=== PATIENT | female | born 1975 | race Caucasian/White ===

== ENCOUNTER → 2016-11-23 | Outpatient (CLI) | payer BC ==
[~2016-11-23] MED LIST: ACET50TA PO; DOCU10CA PO; MOTR200T44 PO; PRENTAB7 PO
[2016-11-23 13:29] LABS: BASO % 0.4 % (0.0-1.0); EOS # 0.2 K/mm3 (0.0-0.50); EOS % 3.9 % (0.0-3.0); LARGE UNSTAINED CELL # 0.1 K/mm3 (0.0-0.4); LARGE UNSTAINED CELL % 2.7 % (0.0-4.0); LYMPH # 1.4 K/mm3 (1.5-4.5); LYMPH % 31.3 % (24.0-44.0); MEAN CORPUSCULAR HEMOGLOBIN 31.9 pg (27.0-33.0); MEAN CORPUSCULAR HGB CONC 33.5 g/dl (32.0-36.5); MEAN CORPUSCULAR VOLUME 95.3 fl (80.0-96.0); MONO # 0.2 K/mm3 (0.0-0.8); MONO % 5.2 % (0.0-5.0); NEUTROPHILS # 2.2 K/mm3 (1.8-7.7); NEUTROPHILS % 56.5 % (36.0-66.0); PLATELET COUNT, AUTOMATED 246 k/mm3 (150-450); RED CELL DISTRIBUTION WIDTH 12.2 % (11.5-14.5)
[2016-11-23 13:59] LABS: ALBUMIN 4.4 GM/DL (3.2-5.2); ALBUMIN/GLOBULIN RATIO 1.63 (1.00-1.93); ALKALINE PHOSPHATASE 48 U/L (45-117); ALT/SGPT 20 U/L (12-78); ANION GAP 11 MEQ/L (8-16); AST/SGOT 18 U/L (15-37); BILIRUBIN,TOTAL 0.6 MG/DL (0.2-1.0); BLOOD UREA NITROGEN 15 MG/DL (7-18); CALCIUM LEVEL 8.9 MG/DL (8.5-10.1); CARBON DIOXIDE LEVEL 28 MEQ/L (21-32); CHLORIDE LEVEL 104 MEQ/L (98-107); CHOLESTEROL LEVEL 134 MG/DL (<200); CREATININE FOR GFR 0.58 MG/DL (0.55-1.02); FREE T4 0.95 NG/DL (0.76-1.46); GLOMERULAR FILTRATION RATE > 60.0 (>58); GLUCOSE, FASTING 87 MG/DL (70-105); POTASSIUM SERUM 4.3 MEQ/L (3.5-5.1); SODIUM LEVEL 143 MEQ/L (136-145); TOTAL PROTEIN 7.1 GM/DL (6.4-8.2); TRIGLYCERIDES LEVEL 36 MG/DL (<150)
== END ==
LOC: M SMT 08:20
PROVIDERS: ATTEND Family Medicine
DX: Z13.29 Encounter for screening for other suspected endocrine disorder (principal); Z13.220 Encounter for screening for lipoid disorders; Z13.0 Encounter for screening for diseases of the blood and blood-forming organs and certain disorders involving the immune mechanism

== ENCOUNTER → 2017-02-02 | Outpatient (REF) | payer BC | LOC: M LAB REF 09:04 | PROVIDERS: ATTEND Family Medicine | DX: Z12.4 Encounter for screening for malignant neoplasm of cervix (principal) ==

== ENCOUNTER → 2017-07-22 | Outpatient (REF) | payer BC | LOC: M LAB REF 09:12 | PROVIDERS: ATTEND Family Medicine | DX: Z20.09 Contact with and (suspected) exposure to other intestinal infectious diseases (principal) ==

== ENCOUNTER → 2018-02-14 | Outpatient (CLI) | payer BC ==
[2018-02-14 13:57] LABS: FREE T4 0.87 NG/DL (0.76-1.46)
== END ==
LOC: M SMT 09:56
DX: R00.2 Palpitations (principal)
CPT/HCPCS: 84443

== ENCOUNTER → 2018-02-14 | Outpatient (REF) | payer BC ==
[2018-02-18 14:16] LABS: HPV LOW VOL RFLX Negative (Negative)
== END ==
LOC: M LAB REF 09:41
DX: Z12.4 Encounter for screening for malignant neoplasm of cervix (principal)
CPT/HCPCS: G0123

== ENCOUNTER → 2018-10-17 | Outpatient (REF) | payer BC ==
[~2018-10-17] MED LIST changes: -ACET50TA PO; +MAPA500T2 PO
[2018-10-19 14:36] LABS: ANTINUCLEAR ANTIBODIES DIRECT Negative (Negative)
== END ==
LOC: M LAB REF 12:02
PROVIDERS: ATTEND Internal Medicine
DX: I73.00 Raynaud's syndrome without gangrene (principal)

== ENCOUNTER → 2020-07-14 | Outpatient (CLI) | payer BC ==
[~2020-07-14] MED LIST changes: +PROP10TA56
== END ==
LOC: M LABSMTC 09:16
PROVIDERS: ATTEND Anesthesiology
DX: Z01.812 Encounter for preprocedural laboratory examination (principal); Z20.828 Contact with and (suspected) exposure to other viral communicable diseases
CPT/HCPCS: C9803; U0002

== ENCOUNTER 2020-07-16 11:31 | Day surgery (SDC) | payer BC ==
[~2020-07-16] VITALS: Ht 160 cm; Wt 55.2 kg
[~2020-07-16 11:31] MED LIST changes: +LIDOCAINE 2% 100MG/5ML SDV (FOR ANES.) As Ordered ONE; +LR 1,000 ML IV ONE; +MIDAZOLAM INJ 2MG/2ML VIAL (J2250 PER 1MG) As Ordered ONE; +ONDANSETRON 4MG/2ML VIAL As Ordered ONE; +SUGAMMADEX SODIUM 500 MG/5 ML VIAL (BRIDION) As Ordered ONE; +ceFAZolin SOD 1 GM in D5W MINI-BAG PLUS 50 ML IV ONE; +dexameTHASONE 4 MG/ML 1ML VIAL (J1100 PER 1MG) As Ordered ONE; +fentaNYL 100 MCG/2 ML INJECTION (J3010) As Ordered ONE; +propofoL 500 MG/50 ML VIAL As Ordered ONE
[2020-07-16] MEDS ORDERED: BUPIVACAINE HCL 0.25% 10ML VIAL As Ordered ONE (12:02)
[2020-07-16] MEDS ORDERED: LIDOCAINE W/EPINEPHRINE 1% 20ML VIAL As Ordered ONE (12:03)
[2020-07-16] MEDS ORDERED: propofoL 200 MG/20 ML VIAL As Ordered ONE ×2 (13:15→13:51)
[2020-07-16] MEDS ORDERED: ACETAMINOPHEN 1000MG 100ML IV BTL (OFIRMEV) (J0131 PER 10MG) As Ordered ONE (13:38)
[2020-07-16 15:30] VITALS: BP 110/82
--- NOTE | 2020-07-29 14:06 | RO ---
DATE OF OPERATION: 07/16/2020 PREOPERATIVE DIAGNOSIS: 1. Left flank lipoma 2. Rectal bleeding POSTOPERATIVE DIAGNOSIS: 1. Rectal polyps times 2. 2. Lipoma 12 x 8 cm PROCEDURE: 1. Colonoscopy with snare polypectomy 2. Excision of lipoma, left flank. SURGEON: Armond Gunn MD ANESTHESIA: IV sedation plus local. BRIEF PROCEDURE SUMMARY: The patient was brought to the operating room, was given IV sedation, was prepped and draped in the usual sterile fashion for the colonoscopy first and the colonoscopy was performed in the patient's stretcher in the left lateral decubitus position. The colonoscope was inserted and advanced through the rectum up through the sigmoid colon, up to the ileocecal valve and the cecum where no significant problems were appreciated in the cecum, ileocecal valve, right colon, transverse colon, descending colon and sigmoid colon. There was a little bit of spasm and redundancy throughout the ascending colon, transverse colon and descending colon, but no other masses or lesions were appreciated. There was a very small polyp in the proximal rectum; but in the mid rectum, there was a moderate sized polyp that was quite inflamed and irritated and might have actually had some recent bleeding associated with this, which was removed with snare polypectomy. The operative field was cleaned and dry and all of the colonoscope was removed in its entirety. No other etiology for rectal bleeding was appreciated. However, the polyp itself easily could have been a source of this. The patient was taken off her stretcher and put on the operating room bed and then placed in the right lateral decubitus position and was prepped and draped in the usual sterile fashion, given IV sedation and local was infiltrated surrounding the entire area. Incision overlying the longitudinal aspect of the lipoma was made with skin knife. Electrocautery was used to cut through dermis, underlying subcutaneous tissue down to the lipoma itself. Lipoma was removed using a combination of blunt and sharp dissection and eventually this lipoma, which had reached all the way down to rib cage and off the fascia, but not involving the muscle itself and was not intramuscular; lipoma was removed in its entirety. 3-0 Vicryl was used to approximate the subcutaneous tissue, as well as the dermis after good hemostasis was achieved with electrocautery and the skin was approximated with a running 4-0 Vicryl suture. Steri-Strips and a dry sterile dressing were applied and the patient was awakened from her anesthesia, brought to the recovery room awake, alert and hemodynamically stable. Sponge and needle counts correct times 2. MTDD
== END 2020-07-16 15:40 | disposition home or self-care (01) ==
LOC: M SDC 11:31
PROVIDERS: ATTEND Surgery
DX: K62.5 Hemorrhage of anus and rectum (principal); D12.8 Benign neoplasm of rectum; D12.6 Benign neoplasm of colon, unspecified; D17.9 Benign lipomatous neoplasm, unspecified; K58.8 Other irritable bowel syndrome; F41.9 Anxiety disorder, unspecified
CPT/HCPCS: 11406; 45385; 81025; 88304; 88305; J0131; J0690; J1100; J2250; J2405; J3010

== ENCOUNTER → 2020-08-21 | Outpatient (CLI) | payer SELFPAY ==
[~2020-08-21] MED LIST changes: -LIDOCAINE 2% 100MG/5ML SDV (FOR ANES.) As Ordered ONE; -LR 1,000 ML IV ONE; -MIDAZOLAM INJ 2MG/2ML VIAL (J2250 PER 1MG) As Ordered ONE; -ONDANSETRON 4MG/2ML VIAL As Ordered ONE; -SUGAMMADEX SODIUM 500 MG/5 ML VIAL (BRIDION) As Ordered ONE; -ceFAZolin SOD 1 GM in D5W MINI-BAG PLUS 50 ML IV ONE; -dexameTHASONE 4 MG/ML 1ML VIAL (J1100 PER 1MG) As Ordered ONE; -fentaNYL 100 MCG/2 ML INJECTION (J3010) As Ordered ONE; -propofoL 500 MG/50 ML VIAL As Ordered ONE
== END ==
LOC: M LABSMTC 13:44
PROVIDERS: ATTEND Pediatrics
DX: Z11.59 Encounter for screening for other viral diseases (principal)

== ENCOUNTER → 2021-01-20 | Outpatient (CLI) | payer BC ==
--- NOTE | 2021-01-20 14:39 | REP ---
INDICATION: IRREGULAR MENSES, FAMILY HX OVARIAN CA COMPARISON: None. TECHNIQUE: Transabdominal pelvic ultrasound followed by transvaginal examination for better evaluation of the endometrium and adnexa with color Doppler evaluation of the ovaries. FINDINGS: Bladder is unremarkable and measures 11.0 x 11.9 x 7.1 cm. Normal anteverted uterus measures 8.5 x 4.4 x 4.2 cm. The endometrial complex measures 4.5 mm thickness. Small subcentimeter nabothian cyst and punctate calcifications along the endometrium are likely chronic and insignificant. Bilateral ovaries are normal in appearance . Right ovary measures 2.4 x 1.0 x 2.0 cm; left ovary measures 3.1 x 1.5 x 1.5 cm. No pelvic fluid or adnexal mass lesion. IMPRESSION: Essentially normal pelvic ultrasound. <Electronically signed by Balaji Decker > 01/20/21 [id number]
== END ==
LOC: M RAD 10:39
PROVIDERS: ATTEND Internal Medicine
DX: N92.6 Irregular menstruation, unspecified (principal); Z80.41 Family history of malignant neoplasm of ovary; N88.8 Other specified noninflammatory disorders of cervix uteri

== ENCOUNTER → 2021-08-18 | Outpatient (CLI) | payer BC ==
--- NOTE | 2021-08-19 09:00 | REP ---
INDICATION: SCREENING MAMMO, DENSE BREAST. COMPARISON: Multiple prior screening examinations, the most recent, 08/12/2020. TECHNIQUE: Digital screening (2D) mammography was performed bilaterally in the CC and MLO projections. Additionally, breast tomosynthesis (3D mammography) was performed bilaterally in the CC and MLO projections. Bilateral whole breast ultrasound was performed. FINDINGS: By history, the patient has no complaints of a palpable breast abnormality or other significant breast complaints. The [facility] volumetric breast density pattern is C, the breasts are heterogenously dense which may obscure small masses. Mammographically, there are no suspicious calcifications, dominant masses or areas of architectural distortion in either breast. There is no significant change since the prior exam. Right breast ultrasound: There are no cystic or solid masses in the right breast. Left breast ultrasound: 12 o'clock, 4 cm from the nipple, complicated cyst. IMPRESSION: BIRADS/ACR : Category 3: Probably benign. This patient's Tyrer-Cuzick lifetime breast cancer risk assessment score is 12.4%. This mammogram was interpreted with the aid of an FDA-approved computer-aided detection system. The patient states she had a clinical breast exam in November 2020. The patient letter being requested is M3. RECOMMENDATION: Six-month follow-up ultrasound evaluation of the left breast. <Electronically signed by Sidney Braden > 08/19/21 [id number]
--- NOTE | 2021-08-19 14:10 | REP ---
INDICATION: Screening, dense breasts. COMPARISON: Multiple screening examinations, the most recent, 08/12/2020. TECHNIQUE: Digital screening (2D) mammography was performed bilaterally in the CC and MLO projections. Additionally, breast tomosynthesis (3D mammography) was performed bilaterally in the CC and MLO projections. Bilateral whole breast ultrasound was performed. FINDINGS: By history, the patient has no complaints of a palpable breast abnormality or other significant breast complaints. [facility], the breasts are heterogenously dense which may obscure small masses. Mammographically, there are no suspicious calcifications, dominant masses or areas of architectural distortion in either breast. There is no significant change since the prior exam. Right breast ultrasound: There are no cystic or solid masses in the right breast. Left breast ultrasound: 12 o'clock, 4 cm from the nipple, complicated cyst. IMPRESSION: BIRADS/ACR : Category 3: Probably benign. This patient's Tyrer-Cuzick lifetime breast cancer risk assessment score is 12.4%. This mammogram was interpreted with the aid of an FDA-approved computer-aided detection system. The patient states she had a clinical breast exam in November 2020. The patient letter being requested is M3. RECOMMENDATION: Six-month follow-up ultrasound evaluation of the left breast. <Electronically signed by Sidney Braden > 08/19/21 [id number]
== END ==
LOC: M WHC 11:15
PROVIDERS: ATTEND Internal Medicine
DX: Z12.31 Encounter for screening mammogram for malignant neoplasm of breast (principal); N60.02 Solitary cyst of left breast; R92.8 Other abnormal and inconclusive findings on diagnostic imaging of breast

== ENCOUNTER → 2021-10-14 | Outpatient (REF) | payer BC, OTHER | LOC: M SFHCWAGY 13:14 | PROVIDERS: ATTEND Advanced Practice Midwife | DX: Z12.4 Encounter for screening for malignant neoplasm of cervix (principal) | CPT/HCPCS: 87624; G0123 ==

== ENCOUNTER → 2021-11-25 | Outpatient (REF) | payer OTHER, BC ==
[2021-11-25 17:24] LABS: FOLLICLE STIMULATING HORMONE 133.4 mIU/mL; LUTEINIZING HORMONE 78.4 mIU/mL; VITAMIN B12 LEVEL 537 PG/ML (247-911)
[2021-11-26 16:16] LABS: TOTAL PROTEIN 7.2 GM/DL (6.4-8.2)
[2021-11-28 12:51] LABS: ALBUMIN 4.59 GM/DL (3.29-5.55); ALBUMIN % 63.7 % (55.8-66.1); ALPHA-1-GLOBULIN % 3.8 % (2.9-4.9); ALPHA-1-GLOBULINS 0.27 GM/DL (0.17-0.41); ALPHA-2-GLOBULINS % 8.3 % (7.1-11.8); BETA-1-GLOBULINS 0.44 GM/DL (0.28-0.60); BETA-1-GLOBULINS % 6.1 % (4.7-7.2)
[2021-11-28 12:52] LABS: BETA-2-GLOBULINS 0.34 GM/DL (0.19-0.55); BETA-2-GLOBULINS % 4.7 % (3.2-6.5); GAMMA GLOBULIN % 13.4 % (11.1-18.8); GAMMA GLOBULINS 0.96 GM/DL (0.65-1.58)
[2021-11-29 00:05] LABS: ANTINUCLEAR ANTIBODIES DIRECT Negative (Negative); CYCLIC CITRULLINATED PEPTIDE 7 units (0-19)
== END ==
LOC: M LAB REF 16:19
PROVIDERS: ATTEND Internal Medicine
DX: H53.8 Other visual disturbances (principal); N95.9 Unspecified menopausal and perimenopausal disorder

== ENCOUNTER → 2021-12-16 | Outpatient (REF) | payer OTHER, BC | LOC: M LAB REF 16:43 | PROVIDERS: ATTEND Internal Medicine | DX: D70.9 Neutropenia, unspecified (principal) ==

== ENCOUNTER → 2022-01-29 | Outpatient (CLI) | payer OTHER, MEDICARE | LOC: M PLALAB 10:08 | PROVIDERS: ATTEND Surgery | DX: Z13.79 Encounter for other screening for genetic and chromosomal anomalies (principal) ==

== ENCOUNTER → 2022-08-18 | Outpatient (REF) | payer OTHER ==
[2022-08-18 13:48] LABS: C REACTIVE PROTEIN QUANTITATIV 0.4 MG/DL (<1.0)
== END ==
LOC: M LAB REF 12:28
PROVIDERS: ATTEND Internal Medicine
DX: H53.8 Other visual disturbances (principal)

== ENCOUNTER → 2022-09-29 | Outpatient (REF) | payer OTHER | LOC: M LAB REF 16:32 | PROVIDERS: ATTEND Internal Medicine | DX: Z11.59 Encounter for screening for other viral diseases (principal) ==

== ENCOUNTER 2023-02-11 08:35 | Day surgery (SDC) | payer OTHER ==
[~2023-02-11] VITALS: Ht 160 cm; Wt 58.6 kg
[~2023-02-11 08:35] MED LIST changes: +NS 1,000 ML IV ONE; +PROP20TA72 PO
[2023-02-11] MEDS ORDERED: LIDOCAINE 2% 100MG/5ML SDV (FOR ANES.) As Ordered ONE (09:12)
[2023-02-11] MEDS ORDERED: propofoL 200 MG/20 ML VIAL As Ordered ONE (09:12)
[2023-02-11 10:44] VITALS: BP 99/62
== END 2023-02-11 11:15 | disposition home or self-care (01) ==
LOC: M OPP 08:35
PROVIDERS: ATTEND Surgery
DX: Z12.11 Encounter for screening for malignant neoplasm of colon (principal); Z86.010 Personal history of colon polyps; D12.8 Benign neoplasm of rectum; Z79.1 Long term (current) use of non-steroidal anti-inflammatories (NSAID); Z79.51 Long term (current) use of inhaled steroids; Z79.899 Other long term (current) drug therapy

== ENCOUNTER → 2023-05-24 | Outpatient (REF) | payer MEDICARE ==
[~2023-05-24] MED LIST changes: -NS 1,000 ML IV ONE
== END ==
LOC: M PLALAB 10:15
PROVIDERS: ATTEND Advanced Practice Midwife
DX: Z12.4 Encounter for screening for malignant neoplasm of cervix (principal)
CPT/HCPCS: 87624; G0123

== ENCOUNTER 2024-09-21 19:33 | Observation (INO) | payer MEDICARE, OTHER ==
[~2024-09-21] VITALS: Ht 160 cm; Wt 59.2 kg
[2024-09-21] MEDS ORDERED: PHEN10TA3 PO (19:42)
[2024-09-21] MEDS ORDERED: FLON1SPR NARES (19:42)
[2024-09-21 20:59] LABS: BASO % 0.4 % (0.0-1.0); EOS # 0.1 10^3/uL (0.0-0.5); EOS % 1.1 % (0.0-3.0); HEMATOCRIT 41.8 % (36.0-47.0); HEMOGLOBIN 13.7 g/dl (12.0-15.5); LYMPH # 1.5 10^3/uL (1.5-5.0); LYMPH % 18.5 % (24.0-44.0); MEAN CORPUSCULAR HEMOGLOBIN 29.9 pg (27.0-33.0); MEAN CORPUSCULAR HGB CONC 32.8 g/dl (32.0-36.5); MEAN CORPUSCULAR VOLUME 91.3 fl (80.0-96.0); MONO # 0.4 10^3/uL (0.0-0.8); NEUTROPHILS # 5.9 10^3/uL (1.5-8.5); NEUTROPHILS % 74.6 % (36.0-66.0); RED BLOOD COUNT 4.58 10^6/uL (4.00-5.40); WHITE BLOOD COUNT 7.9 10^3/uL (4.0-10.0)
[2024-09-21 21:11] LABS: BLOOD UREA NITROGEN 13 MG/DL (9-23); CALCIUM LEVEL 9.5 MG/DL (8.5-10.1); CARBON DIOXIDE LEVEL 29 MMOL/L (20-31); CHLORIDE LEVEL 107 MMOL/L (98-107); CREATININE FOR GFR 0.62 MG/DL (0.55-1.30); GLOMERULAR FILTRATION RATE > 60.0 (>51); GLUCOSE, FASTING 114 MG/DL (60-100); POTASSIUM SERUM 4.5 MMOL/L (3.5-5.1); SODIUM LEVEL 140 MMOL/L (136-145)
[2024-09-21 21:26] LABS: PLATELET COUNT, AUTOMATED 19 10^3/uL (150-450)
[2024-09-22 01:13] LABS: SOURCE PERIPHERAL SMEAR
[2024-09-22 01:24] LABS: INR 0.96; PARTIAL THROMBOPLASTIN TIME 29.7 SECONDS (24.8-34.2); PROTHROMBIN TIME 13.1 SECONDS (12.5-14.5)
[2024-09-22 01:36] LABS: ALBUMIN 4.4 G/DL (3.2-5.2); ALKALINE PHOSPHATASE 84 U/L (35-104); ALT/SGPT 28 U/L (7.0-40); AST/SGOT 33 U/L (<34); BILIRUBIN,DIRECT < 0.1 MG/DL (<0.4); BILIRUBIN,TOTAL 0.4 MG/DL (0.3-1.2); BLOOD UREA NITROGEN 13 MG/DL (9-23); CALCIUM LEVEL 9.6 MG/DL (8.5-10.1); CARBON DIOXIDE LEVEL 29 MMOL/L (20-31); CHLORIDE LEVEL 103 MMOL/L (98-107); CREATININE FOR GFR 0.53 MG/DL (0.55-1.30); GLOMERULAR FILTRATION RATE > 60.0 (>51); GLUCOSE, FASTING 124 MG/DL (60-100); POTASSIUM SERUM 3.6 MMOL/L (3.5-5.1); SODIUM LEVEL 141 MMOL/L (136-145); TOTAL PROTEIN 7.9 G/DL (5.7-8.2)
[2024-09-22] MEDS: methylPREDNISolone 40MG 1ML VIAL IV SCH (03:31)
[2024-09-22] MEDS: cefTRIAXone SOD 1 GM in DEXTROSE 5% (D5W) ADV/MINI-BAG 50 ML IV SCH (03:32)
[2024-09-22 03:52] VITALS: BP 141/86; TEMP 97.7; O2SAT 99
[2024-09-22] MEDS ORDERED: PROP10TA56 PO (03:52)
[2024-09-22] MEDS ORDERED: HOME MED LIST COMPLETE! XX SCH (03:55)
[2024-09-22 04:10] VITALS: BP 126/72; TEMP 98; O2SAT 98
[2024-09-22 04:52] VITALS: BP 119/76; TEMP 97.7; O2SAT 97
[2024-09-22 07:12] LABS: INR 0.99; PROTHROMBIN TIME 13.3 SECONDS (12.5-14.5)
[2024-09-22 08:05] LABS: BASO % 0.4 % (0.0-1.0); EOS % 0.1 % (0.0-3.0); LYMPH # 0.7 10^3/uL (1.5-5.0); LYMPH % 9.2 % (24.0-44.0); MEAN CORPUSCULAR HEMOGLOBIN 30.1 pg (27.0-33.0); MEAN CORPUSCULAR HGB CONC 33.3 g/dl (32.0-36.5); MEAN CORPUSCULAR VOLUME 90.3 fl (80.0-96.0); MONO # 0.1 10^3/uL (0.0-0.8); MONO % 1.3 % (2.0-8.0); NEUTROPHILS # 6.8 10^3/uL (1.5-8.5); NEUTROPHILS % 88.7 % (36.0-66.0); RED BLOOD COUNT 4.32 10^6/uL (4.00-5.40); WHITE BLOOD COUNT 7.7 10^3/uL (4.0-10.0)
[2024-09-22 08:11] LABS: VITAMIN B12 LEVEL 485 PG/ML (211-911)
[2024-09-22 08:21] LABS: PLATELET COUNT, AUTOMATED 42 10^3/uL (150-450)
[2024-09-22 08:27] LABS: HEPATITIS B SURFACE ANTIGEN NEGATIVE (NEGATIVE)
[2024-09-22 08:48] LABS: HEPATITIS C VIRUS ABY INDEX < 0.02 INDEX (<0.8)
[2024-09-22 08:49] LABS: HEPATITIS B CORE ANTIBODY IGM NEGATIVE (NEGATIVE)
[2024-09-22 08:50] LABS: FOLATE > 24.00 NG/ML (>5.4)
[2024-09-22] MEDS: PROPRANOLOL 10 MG TAB PO SCH (09:00)
[2024-09-22] MEDS: DOXYCYCLINE HYCLATE 100MG TABLET PO SCH (09:25)
[2024-09-22] MEDS ORDERED: FLUTICASONE PROP 0.05% NASAL SPRAY 16 GM (FLONASE) NARES PRN (12:20)
[2024-09-22] MEDS: ACETAMINOPHEN 325 MG TAB PO PRN (13:57)
[2024-09-22 15:20] VITALS: BP 131/85; TEMP 97.9; O2SAT 99
[2024-09-22 20:24] VITALS: BP 118/84; TEMP 97.9; O2SAT 98
[2024-09-23 04:22] VITALS: BP 116/79; TEMP 97.9; O2SAT 97
[2024-09-23 06:19] LABS: BASO % 0.6 % (0.0-1.0); EOS # 0.1 10^3/uL (0.0-0.5); EOS % 1.8 % (0.0-3.0); HEMATOCRIT 40.4 % (36.0-47.0); HEMOGLOBIN 13.2 g/dl (12.0-15.5); LYMPH # 2.4 10^3/uL (1.5-5.0); LYMPH % 35.5 % (24.0-44.0); MEAN CORPUSCULAR HGB CONC 32.7 g/dl (32.0-36.5); MEAN CORPUSCULAR VOLUME 91.8 fl (80.0-96.0); MONO # 0.5 10^3/uL (0.0-0.8); MONO % 7.4 % (2.0-8.0); NEUTROPHILS # 3.7 10^3/uL (1.5-8.5); NEUTROPHILS % 54.4 % (36.0-66.0); WHITE BLOOD COUNT 6.8 10^3/uL (4.0-10.0)
[2024-09-23 06:23] LABS: PLATELET COUNT, AUTOMATED 65 10^3/uL (150-450)
[2024-09-23 06:45] LABS: ALKALINE PHOSPHATASE 79 U/L (35-104); ALT/SGPT 21 U/L (7.0-40); AST/SGOT 19 U/L (<34); BILIRUBIN,TOTAL 0.4 MG/DL (0.3-1.2); BLOOD UREA NITROGEN 19 MG/DL (9-23); CALCIUM LEVEL 9.1 MG/DL (8.5-10.1); CARBON DIOXIDE LEVEL 31 MMOL/L (20-31); CHLORIDE LEVEL 108 MMOL/L (98-107); CREATININE FOR GFR 0.66 MG/DL (0.55-1.30); GLOMERULAR FILTRATION RATE > 60.0 (>51); GLUCOSE, FASTING 97 MG/DL (60-100); MAGNESIUM LEVEL 1.9 MG/DL (1.8-2.4); POTASSIUM SERUM 4.2 MMOL/L (3.5-5.1); SODIUM LEVEL 146 MMOL/L (136-145)
[2024-09-23] MEDS: PANTOPRAZOLE 40MG TAB (PROTONIX) PO SCH (09:02)
[2024-09-23] MEDS: dexAMETHasone 4 MG TAB PO SCH (09:02)
[2024-09-23 09:03] VITALS: BP 116/79
[2024-09-23] MEDS ORDERED: DOXY100T PO (09:06)
[2024-09-23] MEDS ORDERED: DEXA4TA PO (09:06)
[2024-09-23] MEDS ORDERED: PANT40TA29 PO (09:06)
[2024-09-23] MEDS ORDERED: AZIT500T5 PO (11:37)
[2024-09-25 17:11] LABS: ANA SCREEN, IFA NEGATIVE (NEGATIVE)
[2024-09-25 23:47] LABS: CARDIOLIPIN IGA ANTIBODY < 2.0 APL-U/mL (<20.0); CARDIOLIPIN IGG ANTIBODY < 2.0 GPL-U/mL (<20.0); CARDIOLIPIN IGM ANTIBODY 6.6 MPL-U/mL (<20.0)
[2024-09-26 11:58] LABS: Anaplasma phagocytophilum NOT DETECTED (NOT DETECT)
[2024-09-26 22:18] LABS: BORRELIA SPECIES DNA NOT DETECTED (NOT DETECT); Babesia microti NOT DETECTED; Ehrlichia chaffeensis NOT DETECTED
[2024-09-27 07:52] LABS: B HENSELAE DNA PCR QL NOT DETECTED (NOT DETECT); B QUINTANA DNA PCR QL NOT DETECTED (NOT DETECT); BARTONELLA SOURCE WHOLE BLOOD
== END 2024-09-23 12:23 | disposition home or self-care (01) ==
LOC: M ED 19:33 → M ED INP 19:34 → M MSPAV 09-22 15:19
PROVIDERS: ADMIT Student in an Organized Health Care Education/Training Program; ATTEND Internal Medicine
DX: D69.6 Thrombocytopenia, unspecified (principal); B34.8 Other viral infections of unspecified site; G43.909 Migraine, unspecified, not intractable, without status migrainosus; Z79.899 Other long term (current) drug therapy; Z20.828 Contact with and (suspected) exposure to other viral communicable diseases
CPT/HCPCS: 36415; 36430; 76700; 80048; 80053; 80074; 80076; 80503; 82607; 82746; 83735; 85025; 85049; 85055; 85362; 85384; 85397; 85610; 85730; 86038; 86147; 86850; 86900; 86901; 87040; 87389; 87468; 87469; 87471; 87478; 87484; 87486; 87581; 87633; 87798; 87801; 96365; 96366; 96375; 99285; J0696; J2919; P9034

== ENCOUNTER → 2025-01-10 | Outpatient (CLI) | payer OTHER ==
[~2025-01-10] MED LIST changes: +AZIT500T5 PO; +DEXA4TA PO; +DOXY100T PO; +FLON1SPR NARES; +PANT40TA29 PO; +PHEN10TA3 PO; +PROP10TA56 PO
== END ==
LOC: M WUC 10:00
PROVIDERS: ATTEND Internal Medicine
DX: M54.6 Pain in thoracic spine (principal); M79.672 Pain in left foot; M47.814 Spondylosis without myelopathy or radiculopathy, thoracic region